=== PATIENT | female | born 1980 | race African-American/Black ===

== ENCOUNTER 2018-05-05 12:22 | Emergency (ER) | payer OTHER ==
[~2018-05-05] VITALS: Ht 165.1 cm; Wt 68.0 kg
[2018-05-05 12:31] VITALS: BP 138/79
--- NOTE | 2018-05-05 13:55 | CT SCAN REPORT ---
EXAMINATION: CT HEAD WITHOUT CONTRAST CT CERVICAL SPINE WITHOUT CONTRAST CLINICAL INFORMATION: Trauma. Fall with head strike. Pain. COMPARISON: None TECHNIQUE: CT of the head and cervical spine were performed without intravenous contrast. Multiplanar reformats were rendered and reviewed. DLP: 932 mGy-cm. FINDINGS: CT head: There is no intracranial hemorrhage, extra-axial collection, or calvarial fracture. There is no mass, mass effect, or CT evidence of large territory infarction. The ventricles are normal in size and configuration without evidence of hydrocephalus. The visualized paranasal sinuses and mastoid air cells are clear. CT cervical spine: The patient was scanned in a mildly flexed position. The cervical vertebral bodies maintain normal heights and alignment. No fracture is seen. The disc heights are maintained. There is no high-grade osseous encroachment on the spinal canal or neural foramina. The visualized lung apices are clear. The soft tissues are within normal limits. IMPRESSION: CT head: - No acute intracranial abnormality. CT cervical spine: - No cervical spine fracture or malalignment.
--- NOTE | 2018-05-05 14:06 | ED HEAD/FACIAL INJ COMPLAINT ---
History of Present Illness General Chief Complaint: General Adult Stated Complaint: SIB UC FOR HEAD CT S/P BANGED HEAD AT WORK X1DAY Source: patient Exam Limitations: no limitations Vital Signs & Intake/Output Vital Signs & Intake/Output ED Intake and Output 05/06 0000 05/05 1200 Intake Total Output Total Balance Patient 150 lb Weight Weight Reported by Patient Measurement Method Allergies Coded Allergies: MDX - Azithromycin (AZITHROMYCIN) (Severe, RASH 05/05/18) Triage Note: PT SENT TO ED BY URGENT CARE FOR HEAD CT. PT HIT HEAD ON CORNER OF CABINET YESTERDAY, -LOC, -VISION CHANGES TODAY. Triage Nurses Notes Reviewed? yes Onset: Abrupt Severity: mild, moderate Severity Numbers: 8 Location: global Method of Injury: direct blow Loss of Consciousness: no loss of consciousness : No Patient currently breastfeeds: No HPI: 38 year old female with no medical history presents for evaluation after head injury. Patient reports that yesterday while at work she bent over and when standing back up she had had an open cabinet door. No loss of consciousness. She reports she suffered a small laceration to her scalp. She reports since then she has had a global headache. No vomiting or changes in vision no blood thinners. No dizziness no lightheadedness. She does not take any medicine for the symptoms. She denies any previous history of head injuries. She is otherwise well. Past History Travel History Traveled to [place] past 21 day No Medical History Any Pertinent Medical History? 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 No Review of Systems Review of Systems Constitutional: Reports: no symptoms. EENTM: Reports: no symptoms. Respiratory: Reports: no symptoms. Cardiovascular: Reports: no symptoms. GI: Reports: no symptoms. Genitourinary: Reports: no symptoms. Musculoskeletal: Reports: no symptoms. Skin: Reports: no symptoms. Neurological/Psychological: Reports: see HPI, headache. Hematologic/Endocrine: Reports: no symptoms. Immunologic/Allergic: Reports: no symptoms. All Other Systems: Reviewed and Negative Physical Exam Physical Exam General Appearance: well developed/nourished, no apparent distress, alert, awake Head: atraumatic, normal appearance, THERE IS A SUPERFICIAL HEALING LACERATION TO THE PARIETAL SCALP NO BLEEDING NO HEMATOMA Eyes: Bilateral: normal appearance, PERRL, EOMI. Ears, Nose, Throat: hearing grossly normal Neck: normal inspection, supple, full range of motion, no midline tenderness Respiratory: normal breath sounds, chest non-tender, no respiratory distress, lungs clear Cardiovascular: regular rate/rhythm, normal peripheral pulses Gastrointestinal: soft, non-tender Back: normal inspection, normal range of motion, no vertebral tenderness Extremities: normal inspection, normal range of motion, no edema Psychiatric: awake, alert, oriented x 3 Cranial Nerves: normal hearing, normal speech, PERRL Coordination/Gait: normal finger to nose, normal gait Motor/Sensory: no motor/sensory deficits Skin: intact, normal color, warm/dry Lymphatic: no anterior cervical christophe Progress Differential Diagnosis: facial fracture, globe injury, ICH, orbit fracture, skull fracture, CONTUSION, CONCUSSION Plan of Care: Orders Procedure Date/time Status URINE 05/05 1231 Complete Laboratory Tests 05/05/18 1246: Urine Test NEGATIVE Patient is here for evaluation of possible head injury. She states that she hit her head while standing up. No loss of consciousness. She is neurologically intact. She has a small healing laceration to the top of her head. A CT scan of the head and several spine were ordered and are negative. Advised rest ice and avoid excessive physical and mental activity. Tylenol at appropriate. Discussed return precautions patient agrees the plan Diagnostic Imaging: Viewed by Me: CT Scan. Discussed w/RAD: CT Scan. Radiology Impression: PATIENT: FIOR GRIJALVA PRESENT AGE: 38 PATIENT ACCOUNT NO: [id number] : 81 LOCATION: [facility] ORDERING PHYSICIAN: New MARTIN SERVICE DATE: 05/05/18 EXAM TYPE: CAT - CT CERV SPINE WO IV CONTRAST; CT HEAD WO IV CONTRAST EXAMINATION: CT HEAD WITHOUT CONTRAST CT CERVICAL SPINE WITHOUT CONTRAST CLINICAL INFORMATION: Trauma. Fall with head strike. Pain. COMPARISON: None TECHNIQUE: CT of the head and cervical spine were performed without intravenous contrast. Multiplanar reformats were rendered and reviewed. DLP: 932 mGy-cm. FINDINGS: CT head: There is no intracranial hemorrhage, extra-axial collection, or calvarial fracture. There is no mass, mass effect, or CT evidence of large territory infarction. The ventricles are normal in size and configuration without evidence of hydrocephalus. The visualized paranasal sinuses and mastoid air cells are clear. CT cervical spine: The patient was scanned in a mildly flexed position. The cervical vertebral bodies maintain normal heights and alignment. No fracture is seen. The disc heights are maintained. There is no high-grade osseous encroachment on the spinal canal or neural foramina. The visualized lung apices are clear. The soft tissues are within normal limits. IMPRESSION: CT head: - No acute intracranial abnormality. CT cervical spine: - No cervical spine fracture or malalignment. 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 <Electronically signed in Other Vendor System> SIGNED BY: Anselmo Rebolledo MD 05/05/18 8743 Departure Departure Disposition: HOME OR SELF CARE Condition: Stable Clinical Impression Primary Impression: Minor head injury Qualifiers: Encounter type: initial encounter Qualified Code: S09.90XA - Unspecified injury of head, initial encounter Referrals: Mima Gutierres MD (PCP/Family) Additional Instructions: Rest, avoid excessive physical and mental activity. Tylenol ibuprofen as needed for pain. Make a follow-up with your primary care doctor in the next few days to review all results of today's visit monitor your symptoms return with any concerns. Departure Forms: Customer Survey General Discharge Information
== END 2018-05-05 14:18 ==
LOC: ERH 12:22
DX: S09.90XA Unspecified injury of head, initial encounter (principal); R51 Headache; W22.8XXA Striking against or struck by other objects, initial encounter; Y93.89 Activity, other specified
CPT/HCPCS: 81025